=== PATIENT | female | born 1945 | race Caucasian/White ===

== ENCOUNTER → 2020-01-28 | Outpatient (CLI) | payer SELFPAY | LOC: M LABSMTC 11:20 | PROVIDERS: ATTEND Pediatrics | DX: Z20.828 Contact with and (suspected) exposure to other viral communicable diseases (principal) ==

== ENCOUNTER 2023-03-21 08:26 | Day surgery (SDC) | payer MEDICARE, BC ==
[~2023-03-21] VITALS: Ht 148.6 cm; Wt 69.4 kg
[~2023-03-21 08:26] MED LIST: CEFUROXIME 1MG/0.1ML INTRACAMERAL INJ As Ordered ONE; CVS1CAP2 PO; CYCLOPENTOLATE 1% OPHTH SOLN 2ML BTL OS SCH; FLURBIPROFEN 0.03% OPHTH SOLN 2.5 ML OS SCH; LIDOCAINE 1% SDV 5ML VIAL As Ordered ONE; LISI10TA22 PO; LR 1,000 ML IV SCH; PHENYLEPHRINE 2.5% OPHTH SOL 2ML OS SCH; SYNT25TA PO; TETRACAINE 0.5% OPHTH SOLN 4ML OS SCH; VITA-183 PO
[2023-03-21] MEDS ORDERED: MIDAZOLAM INJ 2MG/2ML VIAL As Ordered ONE (09:03)
[2023-03-21 11:41] VITALS: BP 140/78; TEMP 96.8; O2SAT 100
== END 2023-03-21 12:01 | disposition home or self-care (01) ==
LOC: M SDC 08:26
PROVIDERS: ATTEND Ophthalmology
DX: H25.12 Age-related nuclear cataract, left eye (principal); E04.9 Nontoxic goiter, unspecified; I10 Essential (primary) hypertension; Z87.891 Personal history of nicotine dependence; Z88.1 Allergy status to other antibiotic agents; Z88.6 Allergy status to analgesic agent; Z88.8 Allergy status to other drugs, medicaments and biological substances; Z91.048 Other nonmedicinal substance allergy status; Z79.899 Other long term (current) drug therapy; Z79.890 Hormone replacement therapy
CPT/HCPCS: 66984; J0697; J2250; V2632